=== PATIENT | female | born 1995 | race Caucasian/White ===

== ENCOUNTER 2018-06-08 12:09 | Emergency (ER) | payer OTHER ==
[2018-06-08] MEDS ORDERED: predniSONE TAB* 20 MG PO ONE (12:33)
[2018-06-08] MEDS ORDERED: Famotidine TAB* 20 MG PO ONE (12:33)
--- NOTE | 2018-06-08 12:33 | ED ---
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 Patient reports some SOB, throat tightening, difficulty swallowing, and rashes scattered to arms, back, neck, LLE, and chin. Intermittent heart racing is also reported. She states she was in [facility] when Sx onset. Patient states that she is allergic to "something" but does not know what. She has started seeing an aging room hand, Dr. Vela, which she has seen once before today recently. Pt reporst taking 2 Benadryl, 2 Zyrtec this am w/ no relief of Sx. Patient has order to have tryptase drawn with acute episodes, which was reason for coming to ED. Home medications include zyrtec, nexium, control, albuterol sulfate, and hydroxyzine. LNMP was a week ago. She report PMHx of hives. FMHx of allergies is denied. On triage, pain is denied, nothing is reported to aggravate/alleviate Sx. - History of Current Complaint Chief Complaint: EDAllergicReaction Time Seen by Provider: 06/08/18 12:23 Hx Obtained From: Patient Onset/Duration: Started weeks ago - first onset seven weeks ago, acute episode onset today CATECHIST, Still Present Timing: Constant Severity Currently: None - pain is denied. Pain Intensity: 0 Pain Scale Used: 0-10 Numeric Aggravating Factor(s): Nothing Alleviating Factor(s): Nothing Associated Signs And Symptoms: Positive: Rash - diffuse, Throat Tightening, Other: - difficulty swallowing, SOB, rapid heart rate, - Allergies/Home Medications Allergies/Adverse Reactions: Allergies Allergy/AdvReac Type Severity Reaction Status Date / Time adhesive Allergy Rash Verified 06/08/18 12:40 azithromycin Allergy Hives Verified 06/08/18 12:40 chocolate flavor Allergy GI Upset Verified 06/08/18 12:40 lactase [From Dairy Aid] Allergy GI Upset Verified 06/08/18 12:40 spironolactone Allergy Hives Verified 06/08/18 12:40 Home Medications: Home Medications Cetirizine* [ZyrTEC 10 MG TAB*] 20 mg PO DAILY 06/08/18 [History Confirmed 06/08] EPINEPHrine [Epinephrine] 0.3 mg SUBCUT DAILY PRN 06/08/18 [History Confirmed ] Esomeprazole Magnesium [Nexium 24Hr] 20 mg PO DAILY 06/08/18 [History Confirmed 06/08/18] Norgestimate-Ethinyl Estradiol [Tri-Linyah Tablet] 1 tab PO DAILY 06/08/18 [ History Confirmed 06/08/18] hydrOXYzine HCL TAB* [Atarax 10 MG TAB*] 10 mg PO TID PRN 06/08/18 [History Confirmed 06/08/18] PMH/Surg Hx/FS Hx/Imm Hx Respiratory History: Denies: Hx Asthma GI History: Reports: Hx Irritable Bowel, Other GI Disorders - colitis Sensory History: Reports: Hx Contacts or Glasses Opthamlomology History: Reports: Hx Contacts or Glasses - Surgical History Surgery Procedure, Year, and Place: Partial small bowel resection as a child. [place] teeth removed. colonoscopy Infectious Disease History: No Infectious Disease History: Reports: Hx Clostridium Difficile Denies: Traveled Outside the [place] in Last 30 Days - Family History Known Family History: Positive: Hypertension, Other - No FHx asthma, allergies Negative: Cardiac Disease, Diabetes - Social History Alcohol Use: Occasionally Substance Use Type: Reports: None Smoking Status (MU): Never Smoked Tobacco Review of Systems Positive: Other - throat tightening, difficulty swallowing Positive: Other - intermittent heart racing Positive: Shortness Of Breath Positive: Rash - arms, back, neck, chin, LLE All Other Systems Reviewed And Are Negative: Yes Physical Exam - Summary Physical Exam Summary: Appearance: Well appearing, no pain distress Skin: warm, dry, reflects adequate perfusion; light erythematous areas scattered diffusely Head/face: normal Eyes: EOMI, JOY ENT: normal; no lip, tongue, or uvular swelling Neck: supple, non-tender Respiratory: CTA, breath sounds present Cardiovascular: RRR, pulses symmetrical Abdomen: non-tender, soft Bowel Sounds: present Musculoskeletal: normal, strength/ROM intact Neuro: normal, sensory motor intact, A&Ox3 Triage Information Reviewed: Yes Vital Signs On Initial Exam: Initial Vitals Temp Pulse Resp BP Pulse Ox 98.6 F 86 14 139/83 99 06/08/18 12:15 06/08/18 12:15 06/08/18 12:15 06/08/18 12:15 06/08/18 12:15 Vital Signs Reviewed: Yes Diagnostics - Vital Signs Vital Signs Temp Pulse Resp BP Pulse Ox 06/08/18 12:15 98.6 F 86 14 139/83 99 - Laboratory Lab Statement: Any lab studies that have been ordered have been reviewed, and results considered in the medical decision making process. Re-Evaluation - Re-Evaluation First Eval Re-Evaluation Time: 13:57 Change: Improved Comment: Patient reports feeling better from Sx. Discussed results of labs and tests, she will be discharged to home. She is agreeable with this plan. Allergic Reaction Course/Dx - Course Course Of Treatment: Barely perceptible erythema without urticaria. No swelling of the oropharynx. Treated with Pepcid with relief. She feels that this may be related to her reflux. I feel perhaps her symptoms may be related to her underlying anxiety. She does have a history of this as well. Us may be why she experienced some relief with Vistaril. She will follow-up closely with her aging room hand and has refused further prednisone for fear of exacerbating anxiety. - Diagnoses Differential Diagnosis/HQI/PQRI: Positive: Other - Allergy versus anxiety versus reflux Provider Diagnoses: GERD (gastroesophageal reflux disease), Acute dermatitis Discharge - Sign-Out/Discharge Documenting (check all that apply): Patient Departure - discharge - Discharge Plan Condition: Improved Disposition: HOME Patient Education Materials: Gastroesophageal Reflux Disease (DC), Allergies ( ED) Referrals: Melodie Vela MD [Medical Doctor] - Additional Instructions: Take Pepcid twice a day for the next month. Return with difficulty breathing, worse, new symptoms, or other concerns. Follow-up with her aging room hand on Saturday. - Billing Disposition and Condition Condition: IMPROVED Disposition: Home - Attestation Statements Document Initiated by Scribe: Yes Documenting Scribe: Juan Jose Mcnamara Provider For Whom Lety is Documenting (Include Credential): Steve Klein MD Scribe Attestation: Juan Jose Carrillo, scribed for Steve Klein MD on 06/08/18 at 1437. Scribe Documentation Reviewed: Yes Provider Attestation: The documentation as recorded by the Juan Jose tran accurately reflects the service I personally performed and the decisions made by me, Steve Klein MD
--- OUTSIDE RECORDS SUMMARY | 2018-06-08 13:15 | XMS REPORT ---
:1995 External Reference #:[id number] Author Organization [employer] Address [address] [facility] [place] [address] Phone [phone] Care Team Providers Name Role Phone Deon Soto MD Primary Care Physician Unavailable Payers Type Date Identification Numbers Payment Provider Subscriber Commercial Expires: Policy Number: [id number] [employer] [facility] Shweta Aquino 2018 Group Name: [employer] [address] PayID: [id number] [place] [address] [facility] Part B Policy Number: [id number] [employer] Theo Aquino PayID: [id number] [address] [place] [address] Problems Date Description Provider Status Onset: 06/05/2018 Allergic urticaria Deon Soto M.D. Active Onset: 06/05/2018 Gastroesophageal reflux disease Deon Soto M.D. Active Family History Date Family Member(s) Problem(s) Comments Mother Hypertension Mother endometriosis Mother neuroendocrine tumor Social History Type Date Description Comments ETOH Use Drinks 5 Alcoholic Beverages Per Week Smoking Patient has never smoked Recreational Drug Use Denies Drug Use Allergies, Adverse Reactions, Alerts Date Description Reaction Status Severity Comments 06/05/2018 Azithromycin active Hives 06/05/2018 Spironolactone active Hives 06/05/2018 Tape active Hives Medications Medication Date Status Form Strength Qnty SIG Indications Ordering Provider Nexium 06/05/ Active Capsules 20mg 30caps take 1 K21.9 Deon Soto 1 hour Enrique before breakfast Tri-Linyah 00/ Active Tablets 0.18/0.215 1 by mouth Unknown 0000 /0.25 every day mg-35 mcg Cetirizine HCL / Active Tablets 10mg 1 by mouth Unknown 0000 every day Immodium 00/00/ Active Tablets as Needed Unknown 0000 Esomeprazole 00/ Active Capsules 20mg 1 by mouth Unknown Magnesium 0000 DR every day Vital Signs Date Vital Result Comment 06/05/2018 Height 72 inches 6'0" Weight 142.19 lb Heart Rate 88 /min BP Systolic 120 mmHg BP Diastolic 80 mmHg Body Temperature 99.2 F O2 % BldC Oximetry 98 % BMI (Body Mass Index) 19.3 kg/m2 Results Description No Information Procedures Description No Information Encounters Type Date Location Provider CPT E/M Dx Office Visit 07/23/2016 [facility],[place] [address] J18.9 9:32a [facility] K58.9 R19.7 Office Visit 07/22/2016 9:32a [facility],[place] [address] J18.9 Hospitalists K58.9 R19.7 Plan of Care Future Appointment(s):07/07/2018 1:40 pm - Deon Soto M.D. at [facility] - [address]06/05/2018 - Deon Soto M.D.K21.9 Gastro- esophageal reflux disease without esophagitisNew Medication:Nexium 20 mgReferral :Bryan La MD, GastroenterologyFollow up:1 syeglL91.0 Allergic urticariaComments:F/u with nvhgyhazuM52.01 Encounter for general adult medical exam w abnormal findingsComments:You should have yearly Flu shot and T dap every 10 years. Exercise 30mts/day 5 times a week,Use sun screen, to prevent skin cancer discussed.Self breast exam once a month to feel for lumps or bumps
[2018-06-08 14:12] VITALS: BP 130/72
== END 2018-06-08 14:11 | disposition home or self-care (01) ==
LOC: ED 12:09
DX: K21.9 Gastro-esophageal reflux disease without esophagitis (principal); L30.9 Dermatitis, unspecified
CPT/HCPCS: 83520; 99282; A9270-GY; J7512

== ENCOUNTER 2018-07-07 09:06 | Observation (INO) | payer OTHER ==
--- OUTSIDE RECORDS SUMMARY | 2018-07-07 09:26 | XMS REPORT ---
:1995 External Reference #:[id number] Author Organization [employer] Address [address] [facility] [place] [address] [place] [address] Phone [phone] Care Team Providers Name Role Phone Deon Soto MD Primary Care Physician Unavailable Payers Type Date Identification Numbers Payment Provider Subscriber Commercial Expires: Policy Number: [id number] [facility] Shweta Aquino 2018 Group Name: [employer] [address] PayID: [id number] [place] [address] [facility] Policy Number: [id number] [employer] Theo Aquino PayID: [id number] [address] [place] [address] Problems Date Description Provider Status Onset: 06/05/2018 Gastroesophageal reflux disease Deon Soto M.D. Active Onset: 06/05/2018 Allergic urticaria Deon Soto M.D. Active Onset: 06/12/2004 Irritable bowel syndrome Bryan La MD Active Onset: 06/12/2016 Acne Bryan La MD Active Note: is why she had spironolactone; Family History Date Family Member(s) Problem(s) Comments Mother Hypertension Mother endometriosis Mother neuroendocrine tumor Social History Type Date Description Comments Cigarette Use Never Smoked Cigarettes ETOH Use Drinks 5 Alcoholic Beverages Per Week Smoking Patient has never smoked Recreational Drug Use Denies Drug Use Daily Caffeine Does Not Consume Caffeine General Hx Text Richard at [employer]. From [place] Allergies, Adverse Reactions, Alerts Date Description Reaction Status Severity Comments 06/05/2018 Azithromycin active Hives 06/05/2018 Spironolactone active Hives 06/05/2018 Tape active Hives Medications Medication Date Status Form Strength Qnty SIG Indications Ordering Provider Protonix 06/12/ Active Tablets 40mg 30tabs take one in [place] 2017 the morning MD Abhinav Immodium 06/09/ Active Tablets as Needed Unknown 2012 Tri-Linyah / Active Tablets 0.18/0.215 1 by mouth Unknown 0000 /0.25 every day mg-35 mcg Cetirizine HCL / Active Tablets 10mg 1 by mouth Unknown 0000 every day Nexium 06/05/ Hx Capsules 20mg 30caps take 1 K21.9 Deon 2017 - DR hussein Soto 1 hour , M.DDelmar 2017 before breakfast Esomeprazole 05/09/ Hx Capsules 20mg 1 by mouth Unknown Magnesium 2017 - every day 2017 Vital Signs Date Vital Result Comment 06/12/2018 Height 71.5 inches 5'11.50" Weight 142.00 lb Heart Rate 97 /min BP Systolic 126 mmHg BP Diastolic 85 mmHg Respiratory Rate 20 /min Body Temperature 98.5 F Pain Level 0 O2 % BldC Oximetry 100 % BMI (Body Mass Index) 19.5 kg/m2 06/05/2018 Height 72 inches 6'0" Weight 142.19 lb Heart Rate 88 /min BP Systolic 120 mmHg BP Diastolic 80 mmHg Body Temperature 99.2 F O2 % BldC Oximetry 98 % BMI (Body Mass Index) 19.3 kg/m2 Results Description No Information Procedures Description No Information Encounters Type Date Location Provider CPT E/M Dx Office Visit 06/12/2018 10:30a [facility] [place] [address] K58.2 L50.0 K21.9 Office Visit 07/23/2016 9:32a [facility] [address] J18.9 Hospitalists K58.9 R19.7 Office Visit 07/22/2016 9:32a [facility] [address] J18.9 Hospitalists K58.9 R19.7 Plan of Care Future Appointment(s):06/30/2018 2:30 pm - Bryan La MD at [facility] Wbyzjnpbwixsarvf44/01/2018 1:40 pm - Deon Soto M.D. at [facility] - [address]/12/2018 - Bryan La MDK58.2 Mixed irritable bowel bjbdcerhF83.0 Allergic oiyoesnfmD16.9 Gastro-esophageal reflux disease without esophagitis
--- OUTSIDE RECORDS SUMMARY | 2018-07-07 09:26 | XMS REPORT ---
:1995 External Reference #:[id number] Author Organization [facility] Address [address] [place] [address] Phone [phone] Care Team Providers Name Role Phone Deon Soto M.D. Primary Care Physician Unavailable Payers Type Date Identification Numbers Payment Provider Subscriber Commercial Effective: Policy Number: [id number] [facility] Theo Aquino 2017 Group Number: [id number] [address] Group Name: [place] [address] PayID: [id number] Problems Date Description Provider Status Onset: 06/06/2018 Allergic condition Melodie Vela M.D. Active Family History Date Family Member(s) Problem(s) Comments General Seasonal Allergies General Food Allergy General Hypertension Father No Current Problems Onset: (1962) Mother Drug Allergy Liquid penicillin, Bactrim, bubble bath Onset: (10/1962) Mother Seasonal Allergies moderate to severe during allergy season Onset: (08/2014) Mother Cancer Breast and nueroendocrine Onset: (10/1962) Mother Eczema on thighs Mother Hypertension Onset: (08/2015) First Brother Food Allergy Shellfish, but tests inconclusive First Brother allergic to cats Social History Type Date Description Comments Education Currently attending 3rd year of college Marital Status Legal Status: Never Lives With Roommate 3 Home Environment Water Source: [place] Home Environment 20+Year Old Home, 2 Years In Current Home Home Environment Lives in an old house Home Environment Lives in an older 1st floor apartment Home Environment There is no basement Home Environment Uses electric heating Home Environment Has a window air conditioner Home Environment The floors are carpeted Home Environment The home is johann Home Environment There are draperies in the home Home Environment Does not use air brass cleaner Home Environment Does not use a dehumidifier Home Environment Pillows are encased in an allergy proof case Home Environment Mattress is encased in an no idea how old mattress is allergy proof case Home Environment Cotton Comforter Comforter is down alternative Home Environment Regular Mattress Smoke-Free Work is smoke-free Smoke-Free Home is smoke-free Pets None 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, 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 Hobbies Watching movies, Wallis[place] Cigarette Use Never Smoked Cigarettes Cigars Never Smoked Cigars Pipe Never Smoked A Pipe Smokeless Tobacco Never Used Smokeless Tobacco ETOH Use Drinks 5 Alcoholic Beverages Per Week ETOH Use Rarely consumes beer ETOH Use Occasionally consumes wine ETOH Use Occasionally consumes liquor ETOH Use Consumes liquor once weekly ETOH Use Currently consumes alcohol Smoking Patient has never smoked Recreational Drug Use Never Used Drugs Allergies, Adverse Reactions, Alerts Date Description Reaction Status Severity Comments 06/04/2018 Cats Runny nose, itchy/watery eyes active 06/04/2018 Dairy gastrointestinal upset, severe active diarrhea 06/04/2018 Eggs gastrointestinal upset, diarrhea active 06/04/2018 Chocolate gastrointestinal upset, severe active flatulence/bloating 06/04/2018 Mold not sure, came back positive on active skin prick 06/04/2018 Dust not sure, came back positive on active skin prick 06/04/2018 Augmentin Sensitive to antibioics in active general, inflamed colon 06/04/2018 Spironolactone Urticaria active 06/04/2018 Tape Urticaria, medical tape, athletic active tape, etc. 06/04/2018 Bandaids Urticaria, can leave on for a active couple hours 06/04/2018 Azithromycin Urticaria, strongest reaction I active have ever had Medications Medication Date Status Form Strength Qnty SIG Indications Ordering Provider Hydroxyzine 06/06/ Active Tablets 10mg 60tab one to T78.40xA Melodie M HCL 2017 s three Pieretti, tablets by M.DDelmar mouth before bed Zyrtec Allergy / Active Capsules 10mg once a day Unknown 0000 Epipen 2-Jose / Active Solution 0.3mg/0.3M have not Unknown 0000 Auto-Inject L used before Albuterol / Active Nebulizer (2.5mg/3ML several Unknown Sulfate 0000 ) 0.083% times a week as needed, becoming more frequent Tums / Active Chewtabs 500mg as needed, Unknown 0000 helps only marginally Tri-Linyah / Active Tablets 0.18/0.215 Unknown 0000 /0.25 mg-35 mcg Pantoprazole / Active Tablets DR 40mg Abhinav, Sodium 0000 Bryan High M.D. Immunizations CPT Code Status Date Vaccine Lot # [id number] Given Unknown Influenza Vaccine Vital Signs Date Vital Result Comment 06/20/2018 Height 70 inches 5'10" Weight 143.00 lb Weight in kg's 64.865 Respiratory Rate 20 /min Heart Rate 83 /min O2 % BldC Oximetry 98 % BP Systolic 124 mmHg BP Diastolic 73 mmHg BMI (Body Mass Index) 20.5 kg/m2 06/13/2018 Height 71 inches 5'11" Weight 141.00 lb Weight in kg's 63.958 Respiratory Rate 18 /min Heart Rate 69 /min O2 % BldC Oximetry 98 % BP Systolic 130 mmHg BP Diastolic 81 mmHg BMI (Body Mass Index) 19.7 kg/m2 06/06/2018 Height 71 inches 5'11" Weight 141.00 lb Weight in kg's 63.958 Respiratory Rate 20 /min Heart Rate 95 /min O2 % BldC Oximetry 99 % BP Systolic 119 mmHg BP Diastolic 80 mmHg BMI (Body Mass Index) 19.7 kg/m2 Results Test Date Test Result H/L Range Note Laboratory test 06/07/2018 TSH (Thyroid 0.48 mcIU/mL 0.34-5.60 finding Stimulating Horm) Free T4 0.94 ng/dL 0.61-1.12 Tryptase, Serum 06/07/2018 Tryptase 1.9 ng/mL <11.5 1 Laboratory test finding 06/07/2018 Complement C4 18 mg/dL 14 - 40 2 Cinnamon Allergen IgE <0.35 kU/L 3 Avocado Allergen IgE Antibody <0.35 kU/L 4 Vanilla Allergen IgE <0.35 kU/L 5 Rast [employer] 12 Panel 06/07/2018 Rast [place] <0.35 kU/L 6 Rast Egg White <0.35 kU/L 7 Rast Cow's Milk <0.35 kU/L 8 Peanut, IgE w/ Reflex < 0.10 kU/L 9 Rast Soybean <0.35 kU/L 10 Rast Wheat <0.35 kU/L 11 Rast Beef <0.35 kU/L 12 Rast Chicken Meat <0.35 kU/L 13 Rast Chocolate <0.35 kU/L 14 Rast [place] <0.35 kU/L 15 Rast Rice <0.35 kU/L 16 Rast [place] <0.35 kU/L 17 Laboratory test finding 06/07/2018 Rast Shrimp <0.35 kU/L 18 Laboratory test finding 06/07/2018 Anti Nuclear Antibody 0.2 U 19 1 Test Performed by: [facility] [place] [address] 2 Test Performed by: [facility] [place] [address] 3 Class 0 (Negative <0.35) ADDITIONAL INFORMATION Analyte Specific Reagent: This test was developed and its performance characteristics determined by [facility]. It has not been cleared or approved by the U.S. Food and Drug Administration. Test Performed by: [place] [address] 4 Class 0 (Negative <0.35) Test Performed by: [place] [address] 5 Class 0 (Negative <0.35) ADDITIONAL INFORMATION This test was developed using an analyte specific reagent. Its performance characteristics were determined by [facility] in a manner consistent with CLIA requirements. This test has not been cleared or approved by the U.S. Food and Drug Administration. Test Performed by: [place] [address] 6 Class 0 (Negative <0.35) Test Performed by: [place] [address] 7 Class 0 (Negative <0.35) Test Performed by: [place] [address] 8 Class 0 (Negative <0.35) Test Performed by: [place] [address] 9 Class 0 (Negative <0.10) Reflex testing to peanut components not performed due to undetectable total peanut IgE. Test Performed by: [place] [address] 10 Class 0 (Negative <0.35) Test Performed by: [place] [address] 11 Class 0 (Negative <0.35) Test Performed by: [place] [address] 12 Class 0 (Negative <0.35) Test Performed by: [place] [address] 13 Class 0 (Negative <0.35) Test Performed by: [place] [address] 14 Class 0 (Negative <0.35) Test Performed by: [place] [address] 15 Class 0 (Negative <0.35) Test Performed by: [place] [address] 16 Class 0 (Negative <0.35) Test Performed by: [place] [address] 17 Class 0 (Negative <0.35) Test Performed by: [place] [address] 18 Class 0 (Negative <0.35) Test Performed by: [place] [address] 19 REFERENCE VALUE <=1.0 (Negative) Test Performed by: [address] [address] Procedures Date CPT Code Description Status 06/06/2018 21247 Pulmonary Function Test Completed Encounters Type Date Location Provider CPT E/M Dx Office Visit 06/20/2018 3:20p Brandon Vela M.D. 74292 K21.9 R06.00 Office Visit 06/13/2018 1:40p [facility] Estrella Anand, [facility] [address]677 K21.9 T78.40xA Office Visit 06/06/2018 2:00p [facility] Melodie Vela M.D. 66367 R06.00 T78.40xA Plan of Care Future Appointment(s):07/09/2018 10:40 am - Melodie Vela M.D. at [id number] - Melodie Vela M.D.K21.9 Gastro-esophageal reflux disease without dgyonmmlkltE65.00 Dyspnea, unspecifiedReferral:Mary Nunez, Mohit Melendez,Follow up: 3 weeks, CHECK-UP/FOLLOW UP VISIT: Continued management of patient's medical care. 10:40 07/09/18Recommendations:continue f/u [facility] - recommend Dr. Horta continue Zyrtec 10 mg twice daily continue PPI 2nd opinion - GI
--- OUTSIDE RECORDS SUMMARY | 2018-07-07 09:26 | XMS REPORT ---
:1995 External Reference #:[id number] Author Organization [facility] Address [address] [place] [address] Phone [phone] Care Team Providers Name Role Phone Deon Soto M.D. 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 mouth before bed Zyrtec 00/ Active Capsules 10mg once a day Unknown Allergy 0000 Nexium 24HR 00/ Active Capsules DR 20mg once a day Unknown Clear Minis 0000 Epipen 2-Jose / Active Solution 0.3mg/0.3M have not Unknown 0000 Auto-Inject L used before Albuterol 00/00/ Active Nebulizer (2.5mg/3ML several Unknown Sulfate 0000 ) 0.083% times a week as needed, becoming more frequent Tums / Active Chewtabs 500mg as needed, Unknown 0000 helps only marginally Tri-Linyah / Active Tablets 0.18/0.215 Unknown 0000 /0.25 mg-35 mcg Immunizations CPT Code Status Date Vaccine Lot # [id number] Given Unknown Influenza Vaccine Vital Signs Date Vital Result Comment 06/13/2018 Height 71 inches 5'11" Weight 141.00 [...] Rast AAA Foods 12 Panel 06/07/2018 Rast [place] <0.35 kU/L 6 Rast Egg White <0.35 kU/L 7 Rast Cow's Milk <0.35 kU/L 8 Peanut, IgE w/ Reflex < 0.10 kU/L 9 Rast Soybean <0.35 kU/L 10 Rast Wheat <0.35 kU/L 11 Rast Beef <0.35 kU/L 12 Rast Chicken Meat <0.35 kU/L 13 Rast Chocolate <0.35 kU/L 14 Rast [place]ima <0.35 kU/L 15 Rast Rice <0.35 kU/L 16 Rast Tomatoe <0.35 kU/L 17 Laboratory test finding 06/07/2018 Rast Shrimp <0.35 kU/L 18 Laboratory test finding 06/07/2018 Anti Nuclear Antibody 0.2 U 19 1 Test Performed by: [place] [address] 2 Test Performed by: [place] [address] 3 Class 0 (Negative <0.35) ADDITIONAL INFORMATION Analyte Specific Reagent: This test was developed and its performance characteristics determined by [facility]. It has not been cleared or approved by the U.S. Food and Drug Administration. Test Performed by: [place] [address] 4 Class 0 (Negative <0.35) Test Performed by: [place] [address] 5 Class 0 (Negative <0.35) ADDITIONAL INFORMATION This test was developed using an analyte specific reagent. Its performance characteristics were determined by [facility] in a manner consistent with CLIA requirements. This test has not been cleared or approved by the U.S. Food and Drug Administration. Test Performed by: [place] [address] 6 Class 0 (Negative <0.35) Test Performed by: [place] [address] 7 Class 0 (Negative <0.35) Test Performed by: [place] [address] 8 Class 0 (Negative <0.35) Test Performed by: [place] [address] 9 Class 0 (Negative <0.10) Reflex testing to peanut components not performed due to undetectable total peanut IgE. Test Performed by: [place] [address] 10 Class 0 (Negative <0.35) Test Performed by: [place] [address] 11 Class 0 (Negative <0.35) Test Performed by: [place] [address] 12 Class 0 (Negative <0.35) Test Performed by: [place] [address] 13 Class 0 (Negative <0.35) Test Performed by: [place] [address] 14 Class 0 (Negative <0.35) Test Performed by: [place] [address] 15 Class 0 (Negative <0.35) Test Performed by: [place] [address] 16 Class 0 (Negative <0.35) Test Performed by: [place] [address] 17 Class 0 (Negative <0.35) Test Performed by: [place] [address] 18 Class 0 (Negative <0.35) Test Performed by: [place] [address] 19 REFERENCE VALUE <=1.0 (Negative) Test Performed by: [address] [address] Procedures Date CPT Code Description Status 06/06/2018 54699 Pulmonary Function Test Completed Encounters Type Date Location Provider CPT E/M Dx Office Visit 06/13/2018 1:40p DIAMOND Cardona 29195 K21.9 T78.40xA Office Visit 06/06/2018 2:00p Brandon Vela M.D. 69955 R06.00 T78.40xA Plan of Care Future Appointment(s):06/20/2018 3:20 pm - Melodie Vela M.D. at [facility]/2018 - Estrella Ulkim, SMALL BOAT ENGINEER-CK21.9 Gastro-esophageal reflux disease without ocfkrbwiyyuT52.40xA Allergy, unspecified, initial encounterRecommendations: Refrain from wearing perfumes/scented colognes while visiting our office. Continue the Zyrtec 10mg twice a day Continue the Hydroxyzine 1-2 at night as needed Continue the Pantoprazole 40mg 1 dailyContinue the Albuterol 2 puffs as needed for cough, shortness of breath, chest congestion or wheezing.Monitor Albuterol use. If using more than 2x/week, please call the office as your asthma medications may need to be adjusted. Continue with the Epipen as needed
--- OUTSIDE RECORDS SUMMARY | 2018-07-07 09:26 | XMS REPORT ---
:1995 External Reference #:[id number] Author Organization [facility] Address [address] [place] [address] Phone [phone] Care Team Providers Name Role Phone Melodie Vela M.D. 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 movies, [place] Leonean Cigarette Use Never Smoked Cigarettes Cigars Never [...] CPT Code Status Date Vaccine Lot # 92497 Given Unknown Influenza Vaccine Vital Signs Date Vital Result Comment 06/06/2018 Height 71 inches 5'11" Weight 141.00 [...] Stimulating Horm) Free T4 0.94 ng/dL 0.61-1.12 Laboratory test finding 06/07/2018 Complement C4 <pending> Rast Cinnamon Ige RF220 <pending> Rast Avocado F96 <pending> Rast Vanilla RF234 <pending> Rast AAA Foods 12 Panel 06/07/2018 Rast [place] F8 <pending> Rast Egg White F1 <pending> Rast Milk Cow F2 <pending> Rast Peanut F13 <pending> Rast Soybean F14 <pending> Rast Wheat F4 <pending> Rast Beef F27 <pending> Rast Chicken Meat F83 <pending> Rast Chocolate F93 <pending> Rast [place] Ige F33 <pending> Rast Rice F9 <pending> Rast Tomato F25 <pending> Laboratory test finding 06/07/2018 Rast Shrimp F24 <pending> Procedures Date CPT Code Description Status 06/06/2018 66238 Pulmonary Function Test Completed Plan of Care Future Appointment(s):06/20/2018 3:20 pm - Melodie Vela M.D. at [id number] - Melodie Vela M.D.T78.40xA Allergy, unspecified, initial encounterNew Medication:Hydroxyzine HCL 10 mgNew Labs:Tryptase, SerumFollow up: within 1-2 weeks, CHECK-UP/FOLLOW UP VISIT: Continued management of patient's medical care.Recommendations:use Cetirizine 10 mg twice daily okay to add Hydroxyzine 10 mg at bedtime; if this is not sedating -okay to use 10 mg 2-3 tabs at bedtime only f/u with [facility] tomorrow labs - see below okayto continue to carry an EpiPen - indications for use reviewed and technique demonstrated.
--- NOTE | 2018-07-07 10:33 | ED ---
Throat Pain/Nasal Congestion - HPI Summary HPI Summary: The pt is a 22 y/o female with a Mhx of GERD and IBS presenting to [facility] c/o an acute on chronic sore throat worsened 3 days ago. She describes it as pulling at the top of her throat. The pt notes difficulty swallowing liquids and solids, dehydration, throat pain, and swollen neck lymph nodes (for 1 month). She took Pantoprazole to no relief and recently tested negative for mono. The pt has an upcoming appointment with her band singer - Dr. Haley Maurer MD in 10 days for an endosopy. - History of Current Complaint Chief Complaint: EDThroatPain Time Seen by Provider: 07/07/18 10:25 Hx Obtained From: Patient Onset/Duration: Still Present, Worse Since - 3 days ago, Other - Acute on chronic Associated Signs And Symptoms: Positive: Dysphagia Related History: Other (Noted In Comments) - Mhx of GERD and IBS - Allergies/Home Medications Allergies/Adverse Reactions: Allergies Allergy/AdvReac Type Severity Reaction Status Date / Time adhesive Allergy Rash Verified 07/07/18 09:11 azithromycin Allergy Hives Verified 07/07/18 09:11 chocolate flavor Allergy GI Upset Verified 07/07/18 09:11 lactase [From Dairy Aid] Allergy GI Upset Verified 07/07/18 09:11 spironolactone Allergy Hives Verified 07/07/18 09:11 Home Medications: Home Medications Pantoprazole TAB (NF) [Protonix TAB (NF)] 40 mg PO DAILY 07/07/18 [History Confirmed 07/07/18] PMH/Surg Hx/FS Hx/Imm Hx Previously Healthy: No Respiratory History: Denies: Hx Asthma GI History: Reports: Hx Irritable Bowel, Other GI Disorders - colitis Sensory History: Reports: Hx Contacts or Glasses Opthamlomology History: Reports: Hx Contacts or Glasses - Surgical History Surgery Procedure, Year, and Place: Partial small bowel resection as a child. [place] teeth removed. colonoscopy Infectious Disease History: No Infectious Disease History: Reports: Hx Clostridium Difficile Denies: Traveled Outside the [place] in Last 30 Days - Family History Known Family History: Positive: Hypertension, Other - No FHx asthma, allergies Negative: Cardiac Disease, Diabetes - Social History Occupation: Student Lives: Dormitory/Roommates Alcohol Use: Occasionally Substance Use Type: Reports: None Smoking Status (MU): Never Smoked Tobacco - Additional Comments History Additional Comments: Denies a Mhx of mono. Review of Systems Constitutional: Other - Positve: Dehydration Positive: Sore Throat, Other - Positive: dysphagia , swollen neck lymph nodes All Other Systems Reviewed And Are Negative: Yes Physical Exam - Summary Physical Exam Summary: Appearance: The patient is well-nourished in no acute distress and in no acute pain. Skin: The skin is warm and dry and skin color reflects adequate perfusion. HEENT: The head is normocephalic and atraumatic. The pupils are equal and reactive. The conjunctivae are clear and without drainage. Nares are patent and without drainage. Mouth reveals moist mucous membranes and has anterior cervical lymphadenopathy without erythema and exudate. The external ears are intact. The ear canals are patent and without drainage. The tympanic membranes are intact. Neck: The neck is supple with full range of motion and non-tender. There are no carotid bruits. There is no neck vein distension. Respiratory: Chest is non-tender. Lungs are clear to auscultation and breath sounds are symmetrical and equal. Cardiovascular: Heart is regular rate and rhythm. There is no murmur or rub auscultated. There is no peripheral edema and pulses are symmetrical and equal. Abdomen: The abdomen is soft and non-tender. There are normal bowel sounds heard in all four quadrants and there is no organomegaly palpated. Musculoskeletal: There is no back tenderness noted. Extremities are non-tender with full range of motion. There is good capillary refill. There is no peripheral edema or calf tenderness elicited. Neurological: Patient is alert and oriented to person, place and time. The patient has symmetrical motor strength in all four extremities. Cranial nerves are grossly intact. Deep tendon reflexes are symmetrical and equal in all four extremities. Psychiatric: The patient has an appropriate affect and does not exhibit any anxiety or depression. Triage Information Reviewed: Yes Vital Signs On Initial Exam: Initial Vitals Temp Pulse Resp BP Pulse Ox 97.4 F 96 17 148/94 100 07/07/18 09:07 07/07/18 09:07 07/07/18 09:07 07/07/18 09:07 07/07/18 09:07 Vital Signs Reviewed: Yes Diagnostics - Vital Signs Vital Signs Temp Pulse Resp BP Pulse Ox 07/07/18 09:07 97.4 F 96 17 148/94 100 - Laboratory Lab Statement: Any lab studies that have been ordered have been reviewed, and results considered in the medical decision making process. Re-Evaluation - Re-Evaluation First Eval Re-Evaluation Time: 11:37 - Discussed the consult with the Dr. Haley maurer MD with the patient. Change: Improved EENT Course/Dx - Course Course Of Treatment: Ms. Aquino presented complaining of the fact that she couldn't swallow. She has had pain in her throat and chest for quite a while with that has been attributed to reflux. She's had some workup and got referred to Dr. Marshall whom she saw on Saturday. She is scheduled to have an upper GI in 10 days. Today it has become difficult to swallow starting last night and is not secondary to pain. She is managing her secretions but has a great deal of difficulty getting any water down. She cannot swallow food. I spoke with Dr. Marshall to get some more background and get some direction. She recommended that if the patient was unable to swallow effectively she should come into the hospital to get scoped if she could wait 48 hours she would be rescheduled for her EGD on Saturday. The patient does not think she is swallowing effectively and the hospitalists were contacted for admission. - Diagnoses Provider Diagnoses: Dysphagia - Provider Notifications Discussed Care Of Patient With: Haley Negrete - Gastroentorologist Time Discussed With Above Provider: 11:28 Instructed by Provider To: Other - Dr. Negrete recommended admiting the pt if dysphagia persists or moving up her upcoming appointment to 07/09/2018. 12: 53 pm- Discussed the care of the pt with Dr. Joyce Blankenship- hospitalist who agreed to admit the pt. Discharge - Sign-Out/Discharge Documenting (check all that apply): Patient Departure - Admit - Discharge Plan Condition: Stable Disposition: ADMITTED TO [facility] Referrals: No Primary Care Phys,NOPCP [Primary Care Provider] - [facility] [Outside] - 3 Days Additional Instructions: Return to ED for any new or worsening symptoms - Billing Disposition and Condition Condition: STABLE Disposition: Admitted to [facility] - Attestation Statements Document Initiated by Scribe: Yes Documenting Scribe: Ibis Lipscomb Provider For Whom Scribe is Documenting (Include Credential): Dr. Dalton Nguyen MD Scribe Attestation: Ibis Carrillo , scribed for Dr. Dalton Nguyen MD on 07/07/18 at 1425. Scribe Documentation Reviewed: Yes Provider Attestation: The documentation as recorded by the carmineibeIbis accurately reflects the service I personally performed and the decisions made by me, Dr. Dalton Nguyen MD
[2018-07-07] MEDS ORDERED: NS 0.9% 1000 ML*IV.FLUID IV ONE (13:12)
[2018-07-07] MEDS ORDERED: Midazolam* 1 MG/ML 10 ML VIAL (10 MG) ONE (14:06)
[2018-07-07] MEDS ORDERED: fentaNYL* 50 MCG/ML 2 ML VIAL (100 MCG VIAL) ONE (14:06)
--- NOTE | 2018-07-07 14:20 | ADMNOTE ---
Subjective Date of Service: 07/07/18 Interval History: ADMISSION HISTORY AND PHYSICAL EXAM: Allergies Allergy/AdvReac Type Severity Reaction Status Date / Time adhesive Allergy Rash Verified 07/07/18 09:11 azithromycin Allergy Hives Verified 07/07/18 09:11 chocolate flavor Allergy GI Upset Verified 07/07/18 09:11 lactase [From Dairy Aid] Allergy GI Upset Verified 07/07/18 09:11 spironolactone Allergy Hives Verified 07/07/18 09:11 Home Medications Medication Instructions Recorded Confirmed Type Albuterol HFA INHALER* [Ventolin 1 - 2 puff INH Q4H PRN #1 mdi 07/23/16 Rx HFA Inhaler*] Cetirizine* [ZyrTEC 10 MG TAB*] 20 mg PO DAILY 06/08/18 07/07/18 History EPINEPHrine [Epinephrine] 0.3 mg SUBCUT DAILY PRN 06/08/18 07/07/18 History Norgestimate-Ethinyl Estradiol 1 tab PO DAILY 06/08/18 07/07/18 History [Tri-Linyah Tablet] hydrOXYzine HCL TAB* [Atarax 10 MG 10 mg PO TID PRN 06/08/18 07/07/18 History TAB*] Pantoprazole TAB (NF) [Protonix 40 mg PO DAILY 07/07/18 07/07/18 History TAB (NF)] HPI: ' The patient states that since 04/2018 she has had progressive dysphagia, now cannot drink water although she does feel it trickling down her throat. No weight loss but feels both hungry and thirsty now. She had neck X-rays in [facility]. She had some special lab tests sent to the [facility] lab. a Family History: Findings - Mother had RT for pituitary neoplasm. Past Medical History: Findings - Nulligravida. Hospitalized 07/2016 for PNA. Hx irritable bowel. Review of Systems - Measurements Intake and Output: Intake and Output Last 24 Hours 07/05/18 07/06/18 07/07/18 07/08/18 06:59 06:59 06:59 06:59 Weight 142 lb - Review of Systems Constitutional Symptoms: Negative: Weight Gain, Weight Loss, Weakness, Fatigue, Fever, Night Sweats, Unexplained Falls, Other Dermatology: Positive: Normal HEENT: Positive: Normal Eyes: Positive: Normal Thyroid: Positive: Normal Pulmonary: Positive: Normal Gastroenterology: Positive: Other - dysphagia Genital - Urinary: Positive: Normal Musculoskeletal: Negative: Joint Pain, Joint Stiffness, Arthritis, Osteoporosis, Low Back Pain , Sciatica, Joint Deformities, Kyphoscoliosis, Other Endocrinology: Positive: Normal Hematologic/Lymphatic: Negative: Anemia, Easy Brusing, Hx Leukemia, Hx Lymphoma, Use of Anticoagulant, Use of Antiplatelet Drugs, Other Neurology: Negative: Normal, Headache, Migraines, Change in Vision, Diplopia, Dizziness , Change in Balancing, Change in Coordination, Change in Memory, Change in Speech, Change in Sphincter Function, Change in Walking, Numbness\Paresthesiae, Unexplained Weakness, Hx of Stroke\TIA, Hx of Seizures, Other Psychiatry: Positive: Normal Allergic/Immunologic: Negative: Hx Anaphylaxis, Hx Angioedema, Hx Environmental, Hx Seasonal, Athsma, Hx HIV, Immunocompromise, Swollen Glands LymphNodes, Other Objective Active Medications: Potassium Chloride/Dextrose (D5w 1/2 Ns Kcl 20 Meq 1000 Ml*) 1,000 mls @ 125 mls/hr IV PER RATE KAREN Vital Signs - 8 hr 07/07/18 09:07 Temperature 97.4 F Pulse Rate 96 Respiratory 17 Rate Blood Pressure 148/94 (mmHg) O2 Sat by Pulse 100 Oximetry Oxygen Devices in Use Now: None Appearance: Alert, kpartly up on ED stretcher. In good spirits. Looks comfortable. Eyes: No Scleral Icterus Respiratory: Symmetrical Chest Expansion and Respiratory Effort, Clear to Auscultation, Clear to Percussion Cardiovascular: NL Sounds; No Murmurs; No JVD, RRR, No Edema, - Abdominal: NL Sounds; No Tenderness; No Distention, No Hepatosplenomegaly, - Extremities: No Edema, No Clubbing, Cyanosis, - Skin: No Rash or Ulcers, No Nodules or Sclerosis, - Neurological: Alert and Oriented x 3, NL Sensation Assess/Plan/Problems-Billing Assessment: - Patient Problems (1) Dysphagia Current Visit: Yes Status: Acute Code(s): R13.10 - DYSPHAGIA, UNSPECIFIED SNOMED Code(s): 10927622 Comment: Dr. Hernandez to do EGD now. Discussed with Dr. Garza CBC, CMP, CRP pending.
--- NOTE | 2018-07-07 15:11 | CONS ---
CONSULTATION REPORT: DATE OF CONSULT: 07/07/18 LOCATION OF CONSULT: Room 2 of [facility] Emergency Room. INDICATION: Inability to swallow. NARRATIVE: Ms. Aquino is a pleasant 22-year-old female, who recently saw her steam oven operator, Dr. Caraballo, just a few days ago last week. She has a history beginning back in April of progressively worsening dysphagia. She also experiences a burning sensation in the back of her mouth. Her symptoms have progressed to the point where over the weekend, she was unable to swallow any liquids. She feels like she cannot eat or drink anything at this time. She did speak to her steam oven operator, Dr. Caraballo, who recommended increasing her PPI to twice a day. The patient then called back this morning and was directed to the emergency room. She is now being admitted to the hospital for severe dysphagia and dehydration. She has used PPIs in the past with minimal relief. She denies any nonsteroidal use at all. No fevers or chills. No family history of esophageal issues such as achalasia or strictures , webs or rings. 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 She had tested negative for mono. PAST MEDICAL HISTORY: Significant for irritable bowel syndrome. PAST SURGICAL HISTORY: Small bowel resection. MEDICATIONS: Upon admission, include: 1. Pantoprazole twice a day, which she states worsened her symptoms and caused abdominal pain. 2. Hydroxyzine. 3. Zyrtec. 4. EpiPen. 5. Albuterol. 6. Tums. ALLERGIES: She is allergic to AZITHROMYCIN, SPIRONOLACTONE, and AUGMENTIN. FAMILY HISTORY: Breast cancer. No GI malignancies in the family. SOCIAL HISTORY: She is in college. No recent alcohol use. No tobacco. No IV drugs. PHYSICAL EXAM: Temperature is 97.4, blood pressure is 148/94, O2 sat is 100%, respiratory rate is 17, pulse is 96. General: Well-appearing young female, in no apparent distress, alert, oriented, pleasant, fluent. HEENT: Mucous membranes are moist without lesions, ulcers, or exudate. Neck is supple. Trachea is midline. Head is normocephalic, atraumatic. Lymph: No supraclavicular or cervical lymphadenopathy. Heart: Regular rate and rhythm. Tachycardic. Lungs: Clear to auscultation bilaterally. No wheezes, rales, or rhonchi. Abdomen: Positive bowel sounds. Soft, nontender, nondistended. No hepatosplenomegaly, masses, rebound, or guarding. Skin: No obvious rashes. LABORATORY DATA: Of note, none performed today. ASSESSMENT AND PLAN: This is a 22-year-old female with progressively worsening dysphagia versus odynophagia. The patient tells me that when this began way back in April, she had been in [facility] at that time, she did have what she calls an x-ray of her esophagus that was normal per her account. Possible causes of her symptoms could include a viral esophagitis either CMV or HSV, could be severe esophagitis, I doubt an achalasia. However, at this point, given her either pain or inability to swallow, I think we should perform an endoscopy. I will make arrangements for an urgent EGD in the emergency room. [id number]/[facility] #: [id number] JELLY
[2018-07-07] MEDS: D5W 1/2 NS KCl 20 Meq 1000 ML* 1,000 ML IV SCH (16:20)
[2018-07-07] MEDS: Pantoprazole IV* 40 MG IV SCH (18:24)
[2018-07-07 19:56] LABS: ABS Basophils 0 10^3/ul (0-0.2); ABS Eosinophils 0 10^3/ul (0-0.6); ABS Lymphocytes 1.7 10^3/ul (1.0-4.8); ABS Monocytes 0.3 10^3/ul (0-0.8); ABS Neutrophils 2.7 10^3/ul (1.5-7.7); ABS Nucleated RBC 0 10^3/ul; Eosinophil % 0.3 % (0-6); Hematocrit 37 % (35-47); Hemoglobin 12.7 g/dl (12.0-16.0); Lymphocyte % 35.6 % (25-47); Mean Corpuscular HGB Conc 35 g/dl (31-36); Mean Corpuscular Hemoglobin 32 pg (27-31); Mean Corpuscular Volume 92 fL (80-97); Mean Platelet Volume 7.5 um3 (7.4-10.4); Nucleated Red Blood Cells % 0.1; Platelet Count 176 10^3/ul (150-450); Red Blood Count 3.99 10^6/ul (4.00-5.40); Red Cell Distribution Width 12 % (10.5-15); White Blood Count 4.8 10^3/ul (3.5-10.8)
[2018-07-07 20:12] LABS: INR 1.1 (0.77-1.02)
[2018-07-07 20:13] LABS: EGFR Non-African American 112.2 (>60)
[2018-07-07] MEDS ORDERED: Ondansetron INJ* 2 MG/ML VIAL IV PRN (21:12)
[2018-07-07] MEDS ORDERED: Ondansetron INJ* 2 MG/ML VIAL ONE (21:22)
[2018-07-07] MEDS ORDERED: Benzocaine/Menthol LOZ* 1 LOZENGE PO PRN (23:50)
[2018-07-08] MEDS: D5W 1/2 NS KCl 20 Meq 1000 ML* 1,000 ML IV SCH (00:18)
--- NOTE | 2018-07-08 03:18 | PRO ---
DATE OF PROCEDURE: 07/07/18 - ROOM #414 PROCEDURE: EGD. INDICATION: Odynophagia. MEDICATIONS GIVEN: 100 mcg IV fentanyl, 12 mg IV Versed. DESCRIPTION OF PROCEDURE: After the EGD procedure, including the risks, benefits, and alternatives, not limited to perforation, surgery, and/or were explained to the patient, written consent was then obtained. IV medication was given and a bite block was placed between the teeth. An Olympus gastroscope was then inserted into the patient's mouth, advanced down the esophagus into the stomach and to the distal duodenum. In the esophagus, GE junction was normal. No erosive esophagitis, stricture, or ring was seen. The entire esophagus was carefully studied. No abnormalities were seen. Four biopsies were taken for eosinophilic esophagitis. Scope was advanced through the GE junction, again no erosive esophagitis, stricture or ring. The Z-line was intact. Into the body of the stomach, retroflex view was unremarkable, forward view also was unremarkable and H. pylori biopsy was obtained. The scope was advanced throughout the patent pylorus and duodenal bulb into the distal duodenum, both of which were unremarkable. Scope was then withdrawn from the patient. She tolerated the procedure well. She was returned to the care of the ED staff. IMPRESSION: 1. Complete upper endoscopy into the distal duodenum with biopsies. 2. Normal esophagus. No etiology was seen for her odynophagia/dysphagia. 3. Biopsies for eosinophilic esophagitis. 4. She should continue with her twice a day PPI and start Carafate. She is going to be admitted to the hospital per the hospitalist request. We will continue to follow along. [id number]/[facility] #: [id number] [facility]ITAL[facility]enn[facility]
[2018-07-08] MEDS: Pantoprazole IV* 40 MG IV SCH (05:37)
[2018-07-08] MEDS ORDERED: Sucralfate SUSP 1 GM/10 ml 10 ML UDC PO SCH (07:30)
--- NOTE | 2018-07-08 08:28 | DCNOTE ---
Subjective Date of Service: 07/08/18 Interval History: Still has feeling that air is stuck in her esophagus, can't take more than a few swallows of water at a time. No new c/o. Family History: Findings - Mother had RT for pituitary neoplasm. Past Medical History: Findings - Nulligravida. Hospitalized 07/2016 for PNA. Hx irritable bowel. Objective Active Medications: Potassium Chloride/Dextrose (D5w 1/2 Ns Kcl 20 Meq 1000 Ml*) 1,000 mls @ 125 mls/hr IV PER RATE [facility] Last Admin: 07/08/18 00:18 Dose: 125 mls/hr Ondansetron HCl (Zofran Inj*) 4 mg IV Q6H PRN PRN Reason: NAUSEA Last Admin: 07/07/18 21:29 Dose: 4 mg Pantoprazole Sodium (Protonix Iv*) 40 mg IV Q12H [facility] Last Admin: 07/08/18 05:37 Dose: 40 mg Sucralfate (Sucralfate Susp) 1 gm PO AC [facility] Throat Lozenges (Chloraseptic Tesfaye*) 1 tesfaye PO Q6H PRN PRN Reason: SORE THROAT Last Admin: 07/08/18 00:16 Dose: 1 tesfaye Vital Signs - 8 hr 07/08/18 03:15 Temperature 97.9 F Pulse Rate 68 Respiratory 16 Rate Blood Pressure 120/57 (mmHg) O2 Sat by Pulse 100 Oximetry Oxygen Devices in Use Now: None Appearance: Alert, partly up in bed. In good spirits. Looks comfortable. Eyes: No Scleral Icterus Extremities: No Edema, No Clubbing, Cyanosis, - Skin: No Rash or Ulcers, No Nodules or Sclerosis, - Neurological: Alert and Oriented x 3, NL Sensation Result Diagrams: 07/07/18 19:49 07/09/18 06:32 Microbiology and Other Data: Microbiology 07/07/18 14:55 CLOtest - Final Gastric Antrum Assess/Plan/Problems-Billing Assessment: - Patient Problems (1) Dysphagia Current Visit: Yes Status: Acute Code(s): R13.10 - DYSPHAGIA, UNSPECIFIED SNOMED Code(s): 24696452 Comment: Discussed with Dr. Hernandez again 07/08. Bx of esophagus pending. I explained to patient that the dx would either be eosinophilic esophagitis or functional dysphagia. Pt will call me tomorrow to get bx report. Fup Dr. Abbasi 07/18 2 PM. Speech patologist did consult to advise on strategies for nutrition at home. Patient's discharge was delayed due to her concerns about the safety of discharge in that she felt she could not even swallow her own saliva. Video swallow eval done, showed normal swallowing function. I discussed the results with her. I spoke to Dr. Abbasi who said that Dr. Caraballo would see the patient 10/4 AM.
--- NOTE | 2018-07-08 16:16 | RAD ---
HISTORY: dysphagia COMPARISONS: None TECHNIQUE: A videofluoroscopic evaluation of swallow was performed in conjunction with speech therapy. Barium laced foods and liquids of varying consistency were administered under fluoroscopic observation. Total fluoroscopy time is 0.9 minutes . FINDINGS: ORAL PHASE: Normal transfer and initiation PHARYNGEAL PHASE: Normal elevation and propulsion ASPIRATION/PENETRATION: There is no aspiration or penetration. OTHER FINDINGS: None. IMPRESSION: UNREMARKABLE SWALLOWING FUNCTION STUDY, WITHOUT ASPIRATION OR PENETRATION. . PLEASE SEE THE SPEECH THERAPIST REPORT FOR FURTHER INFORMATION CPT II Codes: G9500
[2018-07-08] MEDS: Sucralfate SUSP 1 GM/10 ml 10 ML UDC PO PRN ×2 (16:42→19:57)
--- NOTE | 2018-07-09 00:23 | PN ---
Progress Note - Progress Note Date of Service: 07/09/18 Note: Per RN patient tearful and anxious requesting to see psychiatry
[2018-07-09 07:20] LABS: EGFR Non-African American 106.7 (>60)
[2018-07-09] MEDS ORDERED: Pantoprazole IV* 40 MG IV SCH (09:00)
--- NOTE | 2018-07-09 10:15 | PN ---
Subjective Date of Service: 07/09/18 Interval History: Pt started crying last night and requested psychiatry consult. today she stated that she wants to talk to a counselor since she is upset that she missed school x 2 days. Her midterms were yesterday. She refused to be discharged yesterday citing inability to swallow. We had approx 40 min conversation. Pt was reassured that so far there were no organic abnormalities found to explain her swallowing issues and possibility of psychogenic stressors were discussed. Pt initially stated that it's too painful to swallow, then when offered pain killer she clarified that it's not pain but the sensation of bile in her mouth. When she asked to swallow during the eval she took a couple of sips of water reluctantly without any discomfort noted and stated : "see, that's because I have not had anything for 24 hrs though" Family History: Findings - Mother had RT for pituitary neoplasm. Past Medical History: Findings - Nulligravida. Hospitalized 07/2016 for PNA. Hx irritable bowel. Objective Active Medications: Pantoprazole Sodium (Protonix Iv*) 40 mg IV Q24H [facility] Last Admin: 07/09/18 08:06 Dose: Not Given Sucralfate (Sucralfate Susp) 1 gm PO Q4H PRN PRN Reason: HEARTBURN Last Admin: 07/08/18 19:57 Dose: 1 gm Throat Lozenges (Chloraseptic Tesfaye*) 1 tesfaye PO Q6H PRN PRN Reason: SORE THROAT Last Admin: 07/08/18 00:16 Dose: 1 tesfaye Vital Signs - 8 hr 07/09/18 07/09/18 07:13 08:00 Temperature 98.4 F Pulse Rate 85 Respiratory 16 16 Rate Blood Pressure 121/54 (mmHg) O2 Sat by Pulse 100 Oximetry Oxygen Devices in Use Now: None Appearance: 22 yo F in nAD, aAOx3 Eyes: No Scleral Icterus, PERRLA Ears/Nose/Mouth/Throat: NL Teeth, Lips, Gums, Mucous Membranes Moist Neck: NL Appearance and Movements; NL JVP, Trachea Midline Respiratory: Symmetrical Chest Expansion and Respiratory Effort, Clear to Auscultation Cardiovascular: NL Sounds; No Murmurs; No JVD, RRR Abdominal: NL Sounds; No Tenderness; No Distention Lymphatic: No Cervical Adenopathy Extremities: No Edema, No Clubbing, Cyanosis Skin: No Rash or Ulcers, No Nodules or Sclerosis Neurological: Alert and Oriented x 3, NL Muscle Strength and Tone Result Diagrams: 07/07/18 19:49 07/09/18 06:32 Microbiology and Other Data: Microbiology 07/07/18 14:55 CLOtest - Final Gastric Antrum Assess/Plan/Problems-Billing Assessment: 22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 EGD neg on 07/07/18, Video swallow study on 07/08/18 unremarkable - Patient Problems (1) Odynophagia Comment: EGD and video swallow neg. Path from EGD pending Pt awaiting GI cnsult f/u today. IVF stopped since there is no evidcence of dehydration or malnutrition (BUN/creat WNL, prealbumin 28) Psychiatry consult to eval for possible somatoform problem ordered Status and Disposition: OBV
[2018-07-09 13:11] VITALS: BP 115/60
--- NOTE | 2018-07-09 21:03 | CONS ---
CONSULTATION REPORT: DATE OF CONSULT: 07/09/18 ATTENDING PHYSICIAN: Dr. Donya Neri. CONSULTING PHYSICIAN: Dr. Pedro Garcia. REASON FOR CONSULT: Somatic disorder. 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 intake. The patient has received upper endoscopy as well as a video fluoroscopic swallow eval neither of which revealed any organic cause for her symptoms. The patient continues to refuse to swallow, was refusing to eat. Apparently, she was set for discharge yesterday , but was upset at her treatment providers and demanded to stay in the hospital. Later that night, she continued to be emotional and requested to see a counselor. When told that this was not available, she requested a psychiatric evaluation. My understanding is that she is medically cleared for discharge. Prior to seeing her, I did meet with nursing staff on the 4th floor who indicated that her p.o. intake has dramatically improved today, she ate almost 100% of her breakfast and had eaten most of her lunch. When I meet with the patient, she is calm, cooperative, tall, white college student with eyeglasses, wearing a patient gown. She is polite and cooperative, seeming to be somewhat embarrassed by the situation. She does admit that she was upset with her providers yesterday and did request someone to speak to, but she does not believe that she has any acute mental health problems. Interestingly, she had requested an intake appointment [facility] due to social anxiety. This has already been established for 07/11/18. 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 She denies being in any significant stress at that time and so she believes that her symptoms are organic in nature. She notes that occasionally she has itching and elevated histamine symptoms and wonders if she is having an allergic reaction in her esophagus. This possibility has still not been ruled out by biopsy results. At any rate, she does acknowledge that there may be some psychosomatic feature to her problems and does endorse that she has been under a fair amount of academic stress recently. She is particularly stressed that she missed 2 midterm examinations while being here in the hospital. Prior to my involvement, we had already consulted the social work team, who had contacted the [employer] build manager and I understand that they are helping through these issues. At any rate, the patient denies all symptoms of depression, joyce, or psychosis. She denies homicidal or suicidal thoughts and she feels that now that she is eating, it is agreeable for her to return home and be discharged from the hospital. She is agreeable with outpatient mental health followup on campus following discharge. PAST PSYCHIATRIC HISTORY: The patient has no history of formal mental health problems. She has never taken psychiatric medications or been psychiatrically hospitalized. She has never been suicidal or homicidal. She has no history of abuse, neglect, or other developmental trauma. She denies any history of traumatic brain injury. She did see a technical maintenance specialist through the [facility] and they were the ones who encouraged her to accept a referral to the counseling center. SUBSTANCE ABUSE HISTORY: The patient used to drink socially, but she no longer does since she has had these throat symptoms. She has never tried illicit drugs and does not smoke tobacco. PAST MEDICAL HISTORY: Significant for irritable bowel syndrome and for this reason, she restricts her diet from things like dairy, chocolate, and onions. FAMILY HISTORY: Noncontributory. SOCIAL HISTORY: The patient was born and raised in a suburb of [place]. She has 1 older brother who is 22 years old and her parents are still together. She is looking forward to flying home this weekend for her midterm break and being with her family. The patient endorses having good social support at [employer], having plenty of friends to spend time with. She enjoys going out to eat and doing fun things around town. She is single and not sexually active. She denies history of sexually transmitted diseases. She was in the [employer]; however, she denies going to amish recently. She has no history of legal problems. 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 MENTAL STATUS EXAM: The patient is a tall, attractive white female with long brown hair, who is wearing eyeglasses and a green patient gown. She is calm, cooperative, makes good eye contact. Speech has a normal rate, tone, and volume. Mood is euthymic with a full affect. Thought process is linear and goal directed. Thought content is significant for her concerns over her somatic issues. She denies suicidal or homicidal ideations. She denies auditory or visual hallucinations. Insight and judgment appear to be fair given her willingness to follow up with outpatient treatment. DIAGNOSES: As follows: [place] I: Social anxiety disorder by history. [place] II: Deferred. 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 At this time, medical causation cannot totally be ruled out and it does not appear that the patient has any significant psychiatric risks. She has accepted an intake to [facility] where I think she would benefit from conservative psychotherapeutic intervention mostly for anxiety. I do not believe that she warrants psychiatric inpatient hospitalization or psychiatric medication at this time. RECOMMENDATIONS TO PRIMARY TEAM: The patient is psychiatrically cleared to be discharged. She is to follow up at [facility] on 07/11/18. Psychiatry is signing off, but can be reconsulted in the event of any significant changes in her presentation. Thank you for the consult. [id number]/RUTHIE #: [id number] JELLY
--- NOTE | 2018-07-10 13:39 | DS ---
CC: [facility]; Dr. Garcia; Dr. Hernandez; Dr. Abbasi; Dr. Caraballo from Gastroenterology Department * DISCHARGE SUMMARY: DATE OF ADMISSION: 07/07/18 DATE OF DISCHARGE: 07/09/18 PRIMARY CARE PROVIDER: [facility]. DISCHARGE DIAGNOSIS: Dysphagia and odynophagia in a patient with negative workup, likely related to psychogenic stressors. MEDICATIONS AT DISCHARGE: Include, 1. Protonix 40 mg daily. 2. Carafate 1 g 3 times a day p.r.n. LABORATORY DATA AND STUDIES PERFORMED DURING THE HOSPITAL STAY: Included: On 07/09/18, sodium of 138, potassium 3.7, chloride 102, carbon dioxide 26, BUN 8, creatinine 0.7. The patient's prealbumin was 28. C-reactive protein was below 1. PROCEDURES PERFORMED DURING THE HOSPITAL STAY: Included, Video swallow evaluation obtained on 07/08/18, which showed, impression: "Unremarkable swallowing function study without aspiration of penetration." The patient also had an upper endoscopy performed by Dr. Hernandez, on 07/07/18, which showed normal esophagus. Biopsies for eosinophilic esophagitis were performed. There were no findings to explain odynophagia/dysphagia. The patient's pathology report from esophageal biopsy showed squamous mucosa with no significant pathology and no evidence of allergic type or sources of esophagitis identified. No glandular compliant was identified. The patient's CLOtest was negative. CONSULTATIONS DURING THE HOSPITAL STAY: Included Dr. Hernandez from Gastroenterology. 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 The patient initially was placed on observation and upper endoscopy was performed that failed to demonstrate any abnormalities. Furthermore, the patient had a video swallow evaluation on 07/08/18, which also was normal. At this point, there was a discussion with the patient in regards to possibility of psychogenic component to patient's problems with swallowing. She stated that she did just missed her exams that were suppose to happen on 07/08/18. Otherwise, she denied any other stressors. She was assured that there is no pathology noted on her evaluation and she should be able to swallow. Subsequently, she was started on regular diet and tolerated it with no major problems, although she still continues to "taste bile" in her mouth. She was seen by Dr. Garcia from Psychiatry, who recommended for the patient to followup with the crisis implementation consultant at [facility] to which the patient was referred to. The patient is going to be discharged home with recommendation to followup with [facility] in the next 4 to 7 days. For physical please see daily progress note, but was grossly unremarkable. The patient does not appear to be dehydrated or malnourished at any point during her hospital stay. She was pleasant, cooperative with no evidence of anxiety or depression. Please note that this is a short summary of the patient's hospitalization. Please refer to further medical records for details. TIME SPENT: Approximately 35 minutes were spent on the patient's discharge. [id number]/[facility] #: [id number] JELLY
== END 2018-07-09 16:25 | disposition home or self-care (01) ==
LOC: ED 09:06 → MED 14:09
PROVIDERS: ADMIT Internal Medicine; ATTEND Internal Medicine
PROC: 0DB58ZX Excision of Esophagus, Via Natural or Artificial Opening Endoscopic, Diagnostic (ICD-10-PCS; principal; 2018-07-07)
PROC: 0DB68ZX Excision of Stomach, Via Natural or Artificial Opening Endoscopic, Diagnostic (ICD-10-PCS; 2018-07-07)
DX: R13.10 Dysphagia, unspecified (principal); Z79.899 Other long term (current) drug therapy; Z88.1 Allergy status to other antibiotic agents; Z88.8 Allergy status to other drugs, medicaments and biological substances; J02.9 Acute pharyngitis, unspecified; R07.9 Chest pain, unspecified; F41.8 Other specified anxiety disorders
CPT/HCPCS: 36415; 74230; 80048; 80053; 84134; 85025; 85610; 85730; 86140; 87077; 88305; 96361; 96374; 96375; 96376; 99156; 99282; A9270-GY; G0378; G8996-GN-CI; G8996-GN-CK; G8997-GN-CI; G8997-GN-CK; G8998-GN-CI; G8998-GN-CK; J2250; J2405; J3010